=== PATIENT | male | born 1955 | race Caucasian/White ===

== ENCOUNTER 2017-08-03 08:55 | Emergency (ER) | payer OTHER ==
[~2017-08-03] VITALS: Ht 177.8 cm; Wt 85.5 kg
[2017-08-03 08:58] VITALS: BP 168/101; PULSE 82; RESP 12; O2SAT 98
--- NOTE | 2017-08-03 09:09 | ED.REPORT ---
HPI-General Illness Date of Service Aug 03, 2017 ED Provider: Dr. Singh Pt is a generally healthy 61 y/o male presenting to the ED c/o URI-like symptoms onset 2 days ago. The patient thinks he has had a cold for the past 2 days and decided to be seen by his PCP at [facility] today but they were closed so he decided to be seen here in the ED. He has been experiencing mild cough, mild sore throat, generalized fatigue, body aches, subjective fever last night. Pt denies vomiting, abdominal pain, chest pain, neck pain or stiffness, rash. He took Advil today without relief. The patient is not immunocompromised and has no history of diabetes. He did fly to [place] a few days ago and thinks he may have picked something up at that time. Nursing Notes Stated Complaint: FEVER/COLD Chief Complaint: General Complaint Nursing Notes Reviewed: Yes Allergies: Coded Allergies: No Known Allergies (Unverified , 08/03/17) General Time Seen by MD: 09:07 Chief Complaint Other (uri) Hx Obtained From: Patient Arrived By: Walk-in Sudden in Onset?: No Onset Occurred: 2 days ago Symptom Duration: Since onset Quality: Aching Severity: Current: Mild Severity: Maximum: Mild Past Medical History Past Medical History None reported Past Surgical History None reported Smoking History Unknown if Ever Smoker Ambulatory Status Independent Review of Systems Full Review of Systems Constitutional: Reports: Fever, Malaise, Weakness - generalized Ears / Nose / Throat: Reports: Sore throat Respiratory: Reports: Non-productive cough, Denies: Shortness of breath Cardiovascular: Denies: Chest pain GI: Denies: Abdominal pain, Nausea, Vomiting Musculoskeletal: Reports: Myalgia, Denies: Neck pain Skin: Denies Rash Neurologic: Denies: Headache Complete sys rev & neg: except as marked. Physical Exam Vital Signs Vital Signs Date Time Temp Pulse Resp B/P Pulse Ox O2 Delivery O2 Flow Rate FiO2 08/03/17 08:58 37.0 82 12 168/101 98 Room Air Initial VS: Reviewed, Vital signs normal Head / Eyes: Atraumatic, Normocephalic Respiratory: Breath sounds normal, Clear to auscultation, No respiratory distress Cardiovascular: Regular rate & rhythm, Heart sounds normal, Intact distal pulses Abdomen / GI: Soft, Non-tender, No guarding, No rebound, No distention Extremities: Vascular intact, Neuro intact, No swelling Skin: Warm, Dry, No cyanosis Neurologic: Alert, Oriented, Nonfocal Psychiatric: Mood/affect normal, Behavior normal, Normal thought content General/Constitutional: Awake, Alert, No acute distress, Well appearing, Cooperative, Not toxic appearing ENT: Atraumatic, Airway patent, Mucous membranes moist, Pharynx NL, No peritonsillar abscess, No pooling of secretions, No trismus, Tympanic membs NL, Ext aud canal NL, No facial swelling Uvula midline Normal phonation Re-Eval/Medical Decision Med Decision/Clinical Course Pt is a generally healthy 61 y/o male presenting to the ED c/o URI-like symptoms onset 2 days ago. The patient thinks he has had a cold for the past 2 days and decided to be seen by his PCP at the [facility] today but they were closed so he decided to be seen here in the ED. He has been experiencing mild cough, mild sore throat, generalized fatigue, body aches, subjective fever last night. Pt denies vomiting, abdominal pain, chest pain, neck pain or stiffness, rash. He took Advil today without relief. The patient is not immunocompromised and has no history of diabetes. He did fly to [place] a few days ago and thinks he may have picked something up at that time. Here in the emergency department the patient is afebrile stable vital signs in no apparent distress. He is overall well-appearing. Pulmonary auscultation reveals no findings suggestive of focal pneumonia. Examination of the oropharynx reveals no tonsillar swelling, exudate or evidence of peritonsillar abscess. His airway is widely patent. There are no findings suggestive of meningitis. Abdominal examination is benign. Overall constellation of symptoms suggestive of viral illness. Patient was given ibuprofen here in the emergency department. He is advised to do salt water gargles, rest and drink plenty of fluids. I see no indication at this moment for laboratory studies or imaging studies given his very benign history and examination. He will follow up closely with his primary care physician. Prior to discharge follow-up and return precautions were reviewed in detail with the patient who verbalized understanding and agreement with the plan. The patient was discharged in stable condition. Time of Eval: 09:34 Re-Evaluation/Progress Note: Pt rechecked. Informed pt of plan for discharge. Pt understands and agrees with plan for discharge. F/U instructions and RTER warnings given. All questions addressed. Counseled Regarding: Diagnosis, Need for follow-up, When/why to return to ED Discharge & Departure Primary Impression: URI (upper respiratory infection) URI type: unspecified viral URI Qualified Code: J06.9 - Acute upper respiratory infection, unspecified Additional Impressions: Fatigue Fatigue type: unspecified Qualified Code: R53.83 - Other fatigue Pharyngitis Pharyngitis/tonsillitis etiology: unspecified etiology Qualified Code: J02.9 - Acute pharyngitis, unspecified Body aches Disposition: Home Discharge Condition All VS Reviewed: Yes Condition: Stable Patient Instructions: Upper Respiratory Infection (ED) Additional Instructions: Thank you for seeking care at the emergency room. It is difficult for us to make definitive diagnoses in the ED but we believe that you are experiencing an upper respiratory infection. Our primary goal today in the Emergency Department was to evaluate you for any life-threatening conditions. Your evaluation was reassuring. Take Ibuprofen 600 mg every 6 hours as directed for body aches or mild fever. You should follow-up with your primary doctor in the next week. You should return to the Emergency Department immediately if you develop high fevers, severe pain, vomiting, worsening cough, shortness of breath, chest pain , lightheadedness, weakness or any other concerning signs or symptoms. Thank you for letting us partake in your care today. Ref[facility] Scribe Attestation Portions of this note were transcribed by Marquis Fajardo. I, Dr. Singh personally performed the history, physical exam and medical decision-making; I reviewed and confirmed the accuracy of the information in the transcribed note. copies to: [facility] Olile Singh MD Aug 03, 2017 09:09 MARQUIS FAJARDO Aug 03, 2017 09:37
== END 2017-08-03 09:44 | disposition home or self-care (01) ==
LOC: SED 08:55
DX: J06.9 Acute upper respiratory infection, unspecified (principal); J02.9 Acute pharyngitis, unspecified; R53.83 Other fatigue; M79.1 Myalgia; R50.9 Fever, unspecified